=== PATIENT | male | born 1945 | race Caucasian/White ===

== ENCOUNTER 2018-12-10 09:17 | Emergency (ER) | payer SELFPAY ==
[2018-12-10 09:20] VITALS: BP 162/107; PULSE 108; RESP 22; TEMP 37.2
--- NOTE | 2018-12-10 09:34 | DI.RAD.S_ITS ---
PROCEDURE: XR CHEST 1V INDICATIONS: chest pain TECHNIQUE: One view of the chest was acquired. COMPARISON: None. FINDINGS: Surgical changes and devices: None. Lungs and pleura: There is mild diffuse interstitial prominence without focal consolidation. No pleural effusions or pneumothorax. Mediastinum: Mediastinal contours appear normal. Heart size is normal. Bones and chest wall: No suspicious bony lesions. Overlying soft tissues appear unremarkable. IMPRESSION: Mild, diffuse interstitial prominence without focal consolidation. Findings may represent an infectious/inflammatory process although early developing pulmonary edema not excluded if clinically appropriate. Dictated by: Steve Boyer M.D. on 12/10/2018 at 8:55 Approved by: Steve Boyer M.D. on 12/10/2018 at 8:56
[2018-12-10 09:49] LABS: Add Manual Diff / Slide Review NO; Basophils Absolute Auto 100 /uL (0-100); Basophils Percent Auto 0.7 % (0-2); Eosinophils Absolute Auto 0 /uL (0-450); Eosinophils Percent Auto 0.4 % (2-4); Hemoglobin 15.3 g/dL (13.5-17.5); Lymphocytes Absolute Auto 1200 /uL (1100-4500); Lymphocytes Percent Auto 13.2 % (25-40); Mean Corpuscular HGB Conc 34.1 % (30-36); Mean Corpuscular Hemoglobin 32.7 PG (26-34); Mean Corpuscular Volume 95.8 fL (80-100); Monocytes Absolute Auto 800 /uL (0-900); Monocytes Percent Auto 9.3 % (3-14); Neutrophils Absolute Auto 6700 /uL (1500-7000); Neutrophils Percent Auto 76.4 % (50-75); Platelet Count 149 X10^3/uL (150-400); Red Blood Cell Count 4.69 X10^6/uL (4.5-5.9); Red Cell Distribution Width 13.3 % (11.6-14.8); White Blood Cell Count 8.7 X10^3/uL (4.5-11.0)
[2018-12-10 09:53] LABS: Prothrombin Time 11.6 SECONDS (10.1-12.7)
[2018-12-10 09:55] LABS: PTT Partial Thromboplastin Tim 26 SECONDS (26.4-36.2)
[2018-12-10 09:58] LABS: Alanine Aminotransferase 36 IU/L (21-72); Albumin 4.6 g/dL (3.5-5.0); Albumin Globulin Ratio 1.6 (1.0-2.8); Alkaline Phosphatase 52 U/L (38-126); Aspartate Aminotransferase 32 IU/L (17-59); Bilirubin Total 1.2 mg/dL (0.2-1.3); Blood Urea Nitrogen 19 mg/dL (9-20); Calcium 9.4 mg/dL (8.4-10.2); Carbon Dioxide 26 mmol/L (22-32); Chloride 99 mmol/L (98-107); Creatine Kinase 125 U/L (55-170); Estimated Glomerular Filt Rate > 60.0 mL/min (>60); Globulin 2.8 g/dL (1.7-4.1); Glucose 183 mg/dL (80-110); Lipase 101 U/L (23-300); Potassium 3.9 mmol/L (3.4-5.1); Sodium 138 mmol/L (137-145); Total Protein 7.4 g/dL (6.3-8.2)
[2018-12-10 10:01] LABS: B Type Natriuretic Peptide 726 (<100)
[2018-12-10 10:09] LABS: Troponin I < 0.012 ng/mL (0.01-0.034)
[2018-12-10 10:12] VITALS: BP 160/90; PULSE 88; RESP 17; O2SAT 96
[2018-12-10 10:13] LABS: CKMB % Relative Index 1.7 % (1.5-5.0); Creatine Kinase MB 2.15 ng/mL (<2.37); HEMOLYSIS 28 (0-50)
--- NOTE | 2018-12-10 10:29 | ED.SOB ---
HPI - SOB/Dyspnea General Chief Complaint: Shortness of Breath/Dyspnea Stated Complaint: difficulty breathing/SOB Time Seen by Provider: 12/10/18 10:28 Source: patient and family () Mode of arrival: ambulatory Limitations: no limitations History of Present Illness HPI Narrative: This is a 73-year-old male comes to the emergency department complaint of shortness of breath. Patient states he has been feeling more short of breath for the past 4 days. He states came on kind of suddenly. He states it was worse last night. He appreciates being worse on his back and upright is a little bit helpful. He denies any lightheadedness or feeling like he is going to pass out. Denies any chest pain or pressure. States he has been burping a lot he did feel nauseated today. Denies any vomiting. No issues with back pain, no script in abdominal pain, no swelling in his lower extremities no issues with bowel movements or urination. Patient states he has a history of hypertension and diabetes which he takes oral medication for. States he had a colon resection in the past for diverticulitis. Denies any allergies to medications. No tobacco, alcohol or illicit. Patient and his recently flew to the area on November 21 to spend a month here. They are visiting from the [place]. Patient also has many PVCs on his EKG which he has been told was present in the past. He denies any history of catheterization or stress test prior Related Data Home Medications Medication Instructions Recorded Confirmed aspirin [Aspir-81] 81 mg PO DAILY 12/10/18 12/10/18 hydrochlorothiazide 12.5 mg PO DAILY 12/10/18 12/10/18 losartan 100 mg PO DAILY 12/10/18 12/10/18 metformin 1,000 mg PO BID 12/10/18 12/10/18 omeprazole 20 mg PO DAILY 12/10/18 12/10/18 Previous Rx's Medication Instructions Recorded hydrochlorothiazide 25 mg PO DAILY #10 tab 12/10/18 Allergies Allergy/AdvReac Type Severity Reaction Status Date / Time No Known Drug Allergies Allergy Verified 12/10/18 09:33 Review of Systems Review of Systems ROS Unobtainable: All systems reviewed & are unremarkable except as noted in HPI and below Constitutional Constitutional: Denies chills, Denies excessive sweating, Denies fever(s), Denies lethargy and Denies weakness Cardiovascular Cardiovascular: Denies chest pain, Denies diaphoresis, Denies syncope, Denies irregular heart rhythm, Denies lightheadedness, Denies palpitations, Reports dyspnea (better.), Denies dyspnea on exertion and Reports orthopnea Respiratory Respiratory: Denies change in phlegm color, Denies chest congestion, Reports cough (when laying flat), Denies pain on inspiration, Denies pain with cough, Reports dyspnea (better.), Denies dyspnea on exertion, Denies stridor and Denies wheezing Gastrointestinal Gastrointestinal: Denies abdominal pain, Denies change in bowel habits, Denies diarrhea, Denies nausea and Denies vomiting Genitourinary Genitourinary: Denies hematuria, Denies dysuria, Denies flank pain, Denies urinary frequency, Denies urinary hesitancy, Denies urinary incontinence and Denies urinary urgency Neurologic Neurologic: Denies syncope and Denies weakness Endocrine Endocrine: Denies excessive sweating and Denies palpitations Allergic/Immunologic Allergic/Immunologic: Denies wheezing [facility] Medical History (Updated 12/10/18 @ 11:52 by eDnice Ramirez DO) Diabetes (Acute) Hypertension (Acute) Surgical History (Updated 12/10/18 @ 10:48 by Deniec Ramirez DO) History of colon resection (Acute) Social History (Updated 12/10/18 @ 10:49 by Denice Ramirez DO) marital status: details: Lives in [facility], traveling to area. Lived here several years. Smoking Status: Never smoker alcohol intake: never substance use type: does not use Social History (Updated 12/10/18 @ 10:49 by Denice Ramirez DO) marital status: details: Lives in [facility] Lived here several years. Smoking Status: Never smoker alcohol intake: never substance use type: does not use Exam Narrative Exam Narrative: GENERAL: Alert and oriented x three, well-nourished, well-appearing male in mild distress. HEENT: Head normocephalic, atraumatic, EOMI, pupils reactive, face symmetric, moist mucous membranes NECK: Supple, full range of motion CARDIOVASCULAR: Regular rate and rhythm without murmurs, rubs or gallops. RESPIRATORY: Breath sounds equal bilaterally, no wheezes, rhonchi. No tachypnea or accessory muscle use. Crackles at bases. ABDOMEN: Soft, nontender. Normoactive bowel sounds all 4 quadrants. No guarding or rebound, rigidity, no mass : No CVA tenderness EXTREMITIES: Normal range of motion, no clubbing or edema. Neurovascularly intact NEUROLOGICAL: Cranial nerves II through XII grossly intact. Moving all extremities SKIN: Warm, dry, no petechiae, no rashes or lesions. Initial Vital Signs Initial Vital Signs: Vital Signs Temperature 99 F 12/10/18 09:20 Pulse Rate 108 H 12/10/18 09:20 Respiratory Rate 22 12/10/18 09:20 Blood Pressure 162/107 H 12/10/18 09:20 Scores PERC Score Age greater than or equal to 50 years: Yes Heart rate greater than or equal to 100 bpm: Yes Room Air O2 Sat less than 95%: No Unilateral leg swelling: No Recent trauma or surgery: No Hemoptysis: No Prior PE or DVT: No Hormone Use: No Total PERC Score: 2 Course Orders Ordered: ED Orders 12/10/18 09:34 XR chest 1V Stat EKG-12 Lead Stat 12/10/18 09:35 BNP [B Type Natriuretic Peptide] Stat Complete Blood Count AUTO DIFF Stat Comprehensive Metabolic Panel Stat Lipase Stat Partial Thromboplastin Time Stat Prothrombin Time INR Stat Troponin & CK Cardiac Panel Stat 12/10/18 10:47 CT angio chest PE protocol Stat 12/10/18 11:10 Urine Microscopic Stat Vital Signs Vital signs: Vital Signs - 8 hr 12/10/18 11:15 12/10/18 12:10 Pulse Rate 102 H 93 H Respiratory Rate 19 24 Blood Pressure 144/110 H Blood Pressure [Right Arm] 147/82 H Pulse Oximetry 95 96 MDM - SOB/Dyspnea Lab Data Attestation: I reviewed the patient's lab results. Result diagrams: 12/10/18 09:35 12/10/18 09:35 Labs: Lab Results 12/10/18 12/10/18 12/10/18 Range/Units 09:35 09:35 09:35 WBC 8.7 (4.5-11.0) X10^3/uL RBC 4.69 (4.5-5.9) X10^6/uL Hgb 15.3 (13.5-17.5) g/dL Hct 45.0 (41-53) % MCV 95.8 (80-100) fL MCH 32.7 (26-34) PG MCHC 34.1 (30-36) % RDW 13.3 (11.6-14.8) % Plt Count 149 L (150-400) X10^3/uL Neut % (Auto) 76.4 H (50-75) % Lymph % (Auto) 13.2 L (25-40) % [place] % (Auto) 9.3 (3-14) % Eos % (Auto) 0.4 L (2-4) % Baso % (Auto) 0.7 (0-2) % Neut # (Auto) 6700 (5677-5551) /uL Lymph # (Auto) 1200 (9946-5553) /uL [place] # (Auto) 800 (0-900) /uL Eos # (Auto) 0 (0-450) /uL Baso # (Auto) 100 (0-100) /uL PT 11.6 (10.1-12.7) SECONDS INR 1.0 (0.9-1.3) APTT 26 L (26.4-36.2) SECONDS Sodium 138 (137-145) mmol/L Potassium 3.9 (3.4-5.1) mmol/L Chloride 99 (98-107) mmol/L Carbon Dioxide 26 (22-32) mmol/L BUN 19 (9-20) mg/dL Creatinine 1.00 (0.66-1.25) mg/dL Estimated GFR > 60.0 (>60) mL/min BUN/Creatinine Ratio 19.0 (6-22) Glucose 183 H (80-110) mg/dL Calcium 9.4 (8.4-10.2) mg/dL Total Bilirubin 1.2 (0.2-1.3) mg/dL AST 32 (17-59) IU/L ALT 36 (21-72) IU/L Alkaline Phosphatase 52 (38-126) U/L Total Creatine Kinase 125 (55-170) U/L CK-MB (CK-2) 2.15 (<2.37) ng/mL CK-MB (CK-2) Rel Index 1.7 (1.5-5.0) % Troponin I < 0.012 (0.01-0.034) ng/mL B-Natriuretic Peptide 726 H (<100) Total Protein 7.4 (6.3-8.2) g/dL Albumin 4.6 (3.5-5.0) g/dL Globulin 2.8 (1.7-4.1) g/dL Albumin/Globulin Ratio 1.6 (1.0-2.8) Lipase 101 (23-300) U/L Urine RBC (0-5/HPF) Urine WBC (0-5/HPF) Urine Bacteria (None) Ur Culture Indicated? 12/10/18 Range/Units 11:10 WBC (4.5-11.0) X10^3/uL RBC (4.5-5.9) X10^6/uL Hgb (13.5-17.5) g/dL Hct (41-53) % MCV (80-100) fL MCH (26-34) PG MCHC (30-36) % RDW (11.6-14.8) % Plt Count (150-400) X10^3/uL Neut % (Auto) (50-75) % Lymph % (Auto) (25-40) % [place] % (Auto) (3-14) % Eos % (Auto) (2-4) % Baso % (Auto) (0-2) % Neut # (Auto) (2546-0461) /uL Lymph # (Auto) (8928-2853) /uL [place] # (Auto) (0-900) /uL Eos # (Auto) (0-450) /uL Baso # (Auto) (0-100) /uL PT (10.1-12.7) SECONDS INR (0.9-1.3) APTT (26.4-36.2) SECONDS Sodium (137-145) mmol/L Potassium (3.4-5.1) mmol/L Chloride (98-107) mmol/L Carbon Dioxide (22-32) mmol/L BUN (9-20) mg/dL Creatinine (0.66-1.25) mg/dL Estimated GFR (>60) mL/min BUN/Creatinine Ratio (6-22) Glucose (80-110) mg/dL Calcium (8.4-10.2) mg/dL Total Bilirubin (0.2-1.3) mg/dL AST (17-59) IU/L ALT (21-72) IU/L Alkaline Phosphatase (38-126) U/L Total Creatine Kinase (55-170) U/L CK-MB (CK-2) (<2.37) ng/mL CK-MB (CK-2) Rel Index (1.5-5.0) % Troponin I (0.01-0.034) ng/mL B-Natriuretic Peptide (<100) Total Protein (6.3-8.2) g/dL Albumin (3.5-5.0) g/dL Globulin (1.7-4.1) g/dL Albumin/Globulin Ratio (1.0-2.8) Lipase (23-300) U/L Urine RBC 1-5/hpf (0-5/HPF) Urine WBC None seen (0-5/HPF) Urine Bacteria None seen (None) Ur Culture Indicated? Cult not indicated Urine Dip Bedside Urine Glucose Negative Bedside Urine Bilirubin - Negative Bedside Urine Ketone +/- 5 Urine Specific [place] 1.015 Bedside Urine Occult Blood +/- Bedside Urine pH 6.0 Bedside Urine Protein + 30 Bedside Urine Urobilinogen - Negative Bedside Urine Nitrite - Negative Bedside Urine Leukocytes - Negative Esterase Imaging Data Chest x-ray: Radiologist's impression: Anaya Matson 73 [address] [place] [address] XRay Report Signed Patient: Anaya Matson [facility]#: [id number] : 5Acct:[id number] Age/Sex: 73 / MDate of Service: 12/10/18 Loc: ED Accession Number: [id number] Procedure: XR chest 1V Ordering Provider: Denice Ramirez D.O. PROCEDURE: XR CHEST 1V INDICATIONS: chest pain TECHNIQUE: One view of the chest was acquired. COMPARISON: None. FINDINGS: Surgical changes and devices: None. Lungs and pleura: There is mild diffuse interstitial prominence without focal consolidation. No pleural effusions or pneumothorax. Mediastinum: Mediastinal contours appear normal. Heart size is normal. Bones and chest wall: No suspicious bony lesions. Overlying soft tissues appear unremarkable. IMPRESSION: Mild, diffuse interstitial prominence without focal consolidation. Findings may represent an infectious/inflammatory process although early developing pulmonary edema not excluded if clinically appropriate. Dictated by: Setve Boyer M.D. on 12/10/2018 at 8:55 Approved by: Steve Boyer M.D. on 12/10/2018 at 8:56 CT scan - chest: Radiologist's impression: [address] [address] [address] Scan Report Signed Patient: Anaya MatsonMR#: [id number] : 5Acct:[id number] Age/Sex: 73 / MDate of Service: 12/10/18 Loc: ED Accession Number: [id number] Procedure: CT angio chest PE protocol Ordering Provider: Denice Ramirez D.O. PROCEDURE: CT ANGIO CHEST PE PROTOCOL INDICATIONS: sob, elevated HR, recent flight, chf vs. pe TECHNIQUE: After the administration of intravenous contrast, 2 mm thick sections acquired from the pulmonary apices to the posterior costophrenic angles. 3-dimensional maximum intensity projection (MIP) coronal and sagittal reformats were then acquired through the thorax. For radiation dose reduction, the following was used: automated exposure control, adjustment of mA and/or kV according to patient size. COMPARISON: [facility], CR, XR CHEST 1V, 12/10/2018, 9:42. FINDINGS: Image quality: Excellent. Pulmonary arteries: Pulmonary arteries are normal in size, and demonstrate no intraluminal filling defects to suggest central pulmonary embolism. Lungs and pleura: There are scattered areas of patchy ill-defined groundglass opacities predominantly in the dependent portions of the lung bases and scattered throughout the bilateral hemithoraces. A few more nodular opacities are noted along the subpleural aspect of the bilateral upper lobes and right middle lobe. There is smooth septal thickening bilaterally. Xxkay-zrhnawxh-eutun bilateral pleural effusions with associated compressive atelectasis. No pneumothorax. Central and peripheral airways are patent. Minimal bilateral perihilar airway thickening. Mediastinum: Heart size is prominent, without pericardial effusion. Scattered atherosclerotic calcifications of the coronary arteries are noted. Numerous scattered prominent mediastinal lymph nodes measuring up to 10 mm in size. No hilar adenopathy. Thoracic aorta is normal in caliber and enhancement. Esophagus is normal in caliber, without hiatal hernia. Bones and chest wall: No suspicious bony lesions. Ribs and thoracic spine appear intact throughout. Thyroid gland is unremarkable. No axillary or supraclavicular adenopathy. Abdomen: Visualized upper abdominal solid organs appear normal in the early arterial phase of enhancement. IMPRESSION: 1. No acute pulmonary emboli identified. 2. Xrhnu-enbbxebu-bdutl bilateral pleural effusions with prominent cardiac size, smooth septal thickening, and diffuse patchy groundglass opacities likely representing pulmonary edema. However, there are a few somewhat more nodular areas of groundglass opacities involving the periphery of the bilateral upper lobes and right middle lobe as well as reactive mediastinal lymph nodes which may represent a concurrent inflammatory/infectious process. Recommend short interval followup imaging in 3-6 months to document resolution. Dictated by: Steve Boyer M.D. on 12/10/2018 at 10:22 Approved by: Steve Boyer M.D. on 12/10/2018 at 10:33 ECG Data Attestation: I personally reviewed and interpreted this ECG as follows: Prior ECG tracings: not available for review Interpretation: Sinus tachycardia with a rate of 107 P are 174 QRS 85 and QTC [address] No ST elevation or depression is appreciated patient has frequent PVCs. MDM Narrative Medical decision making narrative: Patient comes in with shortness of breath, slightly tachycardic patient has had a recent travel. Labs show an elevated BNP but no changes to cardiac enzymes, no acute ST changes are appreciated patient has frequent PVCs but states that he has been told this on past occasions. Patient does state that his hydrochlorothiazide was decreased before he flew here from the [place] we discussed D-dimer versus angiography and patient elected to have CT for PE rule out which was negative it showed possible infectious versus edema as well as 2 small pleural effusions. My suspicion for infectious cause this time is lower on my suspicion for a CHF exacerbation is higher particularly as patient's ECT Z was decreased to 12.5 mg from 15/08. Plan increase patient's medications back to prior levels and have patient return if he has any new or concerning symptoms. Discharge Plan Departure Patient Disposition: Home Clinical Impression: CHF (congestive heart failure), Pleural effusion Discharge Date/Time: 12/10/18 12:12 Instructions: DI for Heart Failure Activity Restrictions/Additional Instructions: Follow up with your physician when you return home, if you have any issues return to ER for re-evaluation. Increase your HCTZ or hydrochlorothiazide to 25 mg daily. Continue your other home medications as prescribed. Return to the emergency department for fevers greater than 100.4 F, worsening shortness of breath, if you requiring to sit more upright than you are now, if your unable to lay flat, if your having new swelling in your lower extremities, new chest pain, lightheadedness or passing-out, persistent vomiting, productive cough or other new or concerning symptoms. Prescriptions: New hydrochlorothiazide 25 mg tablet 25 mg PO DAILY Qty: 10 RF: 0 No Action aspirin [Aspir-81] 81 mg Tablet,Delayed Release (Dr/Ec) 81 mg PO DAILY RF: 0 metformin 1,000 mg Tablet 1,000 mg PO BID RF: 0 hydrochlorothiazide 12.5 mg Capsule 12.5 mg PO DAILY RF: 0 omeprazole 20 mg Capsule,Delayed Release(Dr/Ec) 20 mg PO DAILY RF: 0 losartan 100 mg Tablet 100 mg PO DAILY RF: 0
--- NOTE | 2018-12-10 10:47 | DI.CT.S_ITS ---
PROCEDURE: CT ANGIO CHEST PE PROTOCOL INDICATIONS: sob, elevated HR, recent flight, chf vs. pe TECHNIQUE: After the administration of intravenous contrast, 2 mm thick sections acquired from the pulmonary apices to the posterior costophrenic angles. 3-dimensional maximum intensity projection (MIP) coronal and sagittal reformats were then acquired through the thorax. For radiation dose reduction, the following was used: automated exposure control, adjustment of mA and/or kV according to patient size. COMPARISON: [facility], CR, XR CHEST 1V, 12/10/2018, 9:42. FINDINGS: Image quality: Excellent. Pulmonary arteries: Pulmonary arteries are normal in size, and demonstrate no intraluminal filling defects to suggest central pulmonary embolism. Lungs and pleura: There are scattered areas of patchy ill-defined groundglass opacities predominantly in the dependent portions of the lung bases and scattered throughout the bilateral hemithoraces. A few more nodular opacities are noted along the subpleural aspect of the bilateral upper lobes and right middle lobe. There is smooth septal thickening bilaterally. Qsjne-vbnvvcds-ihqol bilateral pleural effusions with associated compressive atelectasis. No pneumothorax. Central and peripheral airways are patent. Minimal bilateral perihilar airway thickening. Mediastinum: Heart size is prominent, without pericardial effusion. Scattered atherosclerotic calcifications of the coronary arteries are noted. Numerous scattered prominent mediastinal lymph nodes measuring up to 10 mm in size. No hilar adenopathy. Thoracic aorta is normal in caliber and enhancement. Esophagus is normal in caliber, without hiatal hernia. Bones and chest wall: No suspicious bony lesions. Ribs and thoracic spine appear intact throughout. Thyroid gland is unremarkable. No axillary or supraclavicular adenopathy. Abdomen: Visualized upper abdominal solid organs appear normal in the early arterial phase of enhancement. IMPRESSION: 1. No acute pulmonary emboli identified. 2. Ncuhx-zvyfilar-hjwht bilateral pleural effusions with prominent cardiac size, smooth septal thickening, and diffuse patchy groundglass opacities likely representing pulmonary edema. However, there are a few somewhat more nodular areas of groundglass opacities involving the periphery of the bilateral upper lobes and right middle lobe as well as reactive mediastinal lymph nodes which may represent a concurrent inflammatory/infectious process. Recommend short interval followup imaging in 3-6 months to document resolution. Dictated by: Steve Boyer M.D. on 12/10/2018 at 10:22 Approved by: Steve Boyer M.D. on 12/10/2018 at 10:33
[2018-12-10 11:15] VITALS: BP 147/82; PULSE 102; RESP 19; O2SAT 95
[2018-12-10 12:09] LABS: Bacteria Urine None Seen; Culture Indicated Urine Cult Not Indicated; RBC Urine 1-5/HPF (0-5/HPF); WBC Urine None Seen (0-5/HPF)
[2018-12-10 12:10] VITALS: BP 144/110; PULSE 93; RESP 24; O2SAT 96
== END 2018-12-10 12:12 | disposition home or self-care (01) ==
PROVIDERS: Emergency Provider Emergency Medicine
DX: I50.9 Heart failure, unspecified (principal); J90 Pleural effusion, not elsewhere classified
CPT/HCPCS: 36591; 71045; 71275; 80053; 81003; 81015; 82550; 82553; 83690; 83880; 84484; 85025; 85610; 85730; 93005; 99283; 99285; Q9967